=== PATIENT | male | born 1975 | race Caucasian/White ===

== ENCOUNTER 2018-05-03 12:57 | Inpatient (IN) | payer OTHER, SELFPAY ==
[2018-05-03] VITALS (8 sets, daily range): BP systolic 139–164; BP diastolic 90–99; PULSE 95–114; RESP 15–18; TEMP 37.2–38.3; O2SAT 92–97; BMI 27.5; BMI 28.0
--- NOTE | 2018-05-03 13:41 | ED_ITS ---
HPI - Abdominal Pain <Yelitza Colón PA-C - Last Filed: 05/03/18 22:05> General Chief Complaint: Abdominal Pain Stated Complaint: BLOATED, ABD PAIN Time Seen by Provider: 05/03/18 14:00 Source: patient Mode of arrival: ambulatory Limitations: no limitations History of Present Illness HPI narrative: This 43-year-old male is sent in by his PCP due to abdominal pain and possible fever, onset last night. He states that in the evening, he began having lower abdominal pain which he states is throughout both lower quadrants and can also feel up to the midline almost to the epigastrium. He states that this is worse when he moves around and seems more widespread. He vomited his dinner last night. He has had dry heaves today along with nausea but no vomiting. He has been able to keep down some water. He states that he has had chills and sweats at home, no temperature taken. He states that he had 2 or 3 episodes of loose stools without any blood in them yesterday. He denies any urinary symptoms or hematuria. He denies any chest pain or dyspnea. He feels somewhat shaky and weak all over but denies any extremity pain or body aches. He admits to 20+ lb weight loss without trying over the last 6 months and has not had any appetite. He denies night sweats or swollen glands. notes he has been trying interval THC to help his appetite. He does drink 1- 1.5 bottles of 1 most days, other days might have 2 drinks. He has been doing this for many years. He did drink wine last night. Related Data Home Medications Medication Instructions Recorded Confirmed albuterol sulfate [ProAir HFA] 2 puff INHALATION QID PRN 05/03/18 05/03/18 alprazolam [Xanax] 0.5 mg PO BID PRN 05/03/18 05/03/18 lisinopril 5 mg PO DAILY 05/03/18 05/03/18 Allergies Allergy/AdvReac Type Severity Reaction Status Date / Time No Known Drug Allergies Allergy Verified 05/03/18 13:24 Review of Systems <Yelitza Colón PA-C - Last Filed: 05/03/18 22:05> Review of Systems All systems reviewed & are unremarkable except as noted in HPI and below PFSH <ALBA Valladares Last Filed: 05/03/18 22:05> Comment: EtOH 4-6 glasses of wine daily most days. At double THC for appetite Exam <ALBA Valladares Last Filed: 05/03/18 22:05> Narrative Exam Narrative: GENERAL APPEARANCE: Patient lying supine, appears in NAD HEENT: PERRL, EOMI, no scleral icterus NECK: Supple LUNGS: Clear to auscultation bilaterally. HEART: Rate and rhythm regular, normal S1 and S2, no S3 or S4. ABDOMEN: Soft, generalized tenderness most pronounced over the lower quadrants and right upper quadrant. There is no guarding. There is rebound over the lower quadrants but this is not reproducible. Negative Funez sign. Positive obturator sign most on the left. EXTREMITIES: No edema, no cyanosis, no calf TTP DERMATOLOGIC: No jaundice or exanthem NEUROLOGIC: Alert and oriented with normal speech and coordination Initial Vital Signs Initial Vital Signs: Vital Signs Temperature 98.9 F 05/03/18 13:24 Pulse Rate 104 H 05/03/18 13:24 Respiratory Rate 18 05/03/18 13:24 Blood Pressure 164/99 H 05/03/18 13:24 Pulse Oximetry 97 05/03/18 13:24 <Colette Soto DO - Last Filed: 05/04/18 15:46> Initial Vital Signs Initial Vital Signs: Vital Signs Temperature 98.9 F 05/03/18 13:24 Pulse Rate 104 H 05/03/18 13:24 Respiratory Rate 18 05/03/18 13:24 Blood Pressure 164/99 H 05/03/18 13:24 Pulse Oximetry 97 05/03/18 13:24 Course <Yelitza Colón PA-C - Last Filed: 05/03/18 22:05> Decision to Admit Date: 05/03/18 Decision to Admit time: 16:10 Additional Information: spoke with radiologist re: Acute pancreatitis as well as concern for sigmoid thickening with diverticulitis versus carcinoma. Reviewed findings with patient. Dr. Perla, hospitalist stations superintendent is in the department and seen patient with plan for admission. Orders Ordered: ED Orders 05/05/18 05:00 Complete Blood Count AUTO DIFF Routine Comprehensive Metabolic Panel Routine 05/05/18 11:30 Lipase DAILY Acetaminophen (Tylenol) 650 mg PO Q4HR PRN PRN Reason: As Needed for Fever/Mild Pain Last Admin: 05/04/18 12:33 Dose: 650 mg Enoxaparin Sodium (Lovenox) 40 mg SUBCUT DAILY [facility] Last Admin: 05/04/18 07:47 Dose: 40 mg Hydromorphone HCl (Dilaudid) 1 mg IV Q4HRWA [facility] Last Admin: 05/04/18 13:59 Dose: Not Given Admin: 05/04/18 10:02 Dose: 1 mg Admin: 05/04/18 00:45 Dose: 1 mg Admin: 05/03/18 18:03 Dose: 1 mg Levofloxacin (Levaquin) 500 mg in 100 mls @ 100 mls/hr IV Q24H [facility] Last Infusion: 05/03/18 21:06 Dose: 0 mls/hr Admin: 05/03/18 19:19 Dose: 100 mls/hr Metronidazole (Flagyl) 500 mg in 100 mls @ 100 mls/hr IV Q8H [facility] Last Infusion: 05/04/18 09:59 Dose: 0 mls/hr Admin: 05/04/18 07:47 Dose: 100 mls/hr Infusion: 05/04/18 02:00 Dose: 100 mls/hr Admin: 05/04/18 00:43 Dose: 100 mls/hr Infusion: 05/03/18 19:19 Dose: 0 mls/hr Admin: 05/03/18 18:00 Dose: 100 mls/hr Dextrose/Sodium Chloride (Dextrose 5%-0.9% Ns) 1,000 mls @ 175 mls/hr IV CONT [facility] Last Admin: 05/04/18 10:03 Dose: 175 mls/hr Infusion: 05/03/18 23:43 Dose: 175 mls/hr Admin: 05/03/18 18:00 Dose: 175 mls/hr Lorazepam (Ativan) 2 mg IV Q4HR PRN PRN Reason: Alcohol Withdrawal Last Admin: 05/04/18 15:39 Dose: 2 mg Admin: 05/04/18 10:48 Dose: 2 mg Admin: 05/04/18 05:14 Dose: 2 mg Admin: 05/04/18 00:44 Dose: 2 mg Admin: 05/03/18 21:05 Dose: 2 mg Naloxone HCl (Narcan) 0.2 mg IV Q2MIN PRN PRN Reason: Opiate Reversal Ondansetron HCl (Zofran) 4 mg IV Q8HR PRN PRN Reason: Nausea And Vomiting Discontinued Medications Hydromorphone HCl (Dilaudid) 0.5 mg IV NOW ONE Stop: 05/03/18 15:17 Last Admin: 05/03/18 15:20 Dose: 0.5 mg Hydromorphone HCl (Dilaudid) 0.5 mg IV NOW ONE Stop: 05/03/18 16:00 Last Admin: 05/03/18 16:32 Dose: 0.5 mg Sodium Chloride (Normal Saline 0.9%) 1,000 mls @ 1,000 mls/hr IV BOLUS ONE Stop: 05/03/18 15:24 Last Infusion: 05/03/18 16:04 Dose: 0 mls/hr Admin: 05/03/18 14:39 Dose: 1,000 mls/hr Sodium Chloride (Normal Saline 0.9%) 1,000 mls @ 1,000 mls/hr IV BOLUS ONE Stop: 05/03/18 16:58 Last Infusion: 05/03/18 17:13 Dose: 1,000 mls/hr Admin: 05/03/18 16:32 Dose: 1,000 mls/hr Ketorolac Tromethamine (Toradol) 30 mg IV NOW ONE Stop: 05/03/18 14:26 Last Admin: 05/03/18 14:39 Dose: 30 mg Lorazepam (Ativan) 0.5 mg IV NOW ONE Stop: 05/03/18 14:26 Last Admin: 05/03/18 14:39 Dose: 0.5 mg Lorazepam (Ativan) 2 mg IV NOW ONE Stop: 05/03/18 16:23 Last Admin: 05/03/18 16:32 Dose: 2 mg Ondansetron HCl (Zofran) 4 mg IV NOW ONE Stop: 05/03/18 14:26 Last Admin: 05/03/18 14:39 Dose: 4 mg Vital Signs - 8 hr 05/04/18 07:57 05/04/18 10:20 05/04/18 12:33 Temperature 100.9 F H 100.5 F H Pulse Rate 111 H Respiratory Rate 20 Blood Pressure 145/91 H Pulse Oximetry 99 96 05/04/18 13:34 05/04/18 14:07 05/04/18 15:39 Temperature 100.6 F H 100.9 F H 101.3 F H Pulse Rate 106 H Respiratory Rate 20 Blood Pressure 143/84 H Pulse Oximetry 95 <Colette Soto, - Last Filed: 05/04/18 15:46> Orders Ordered: ED Orders 05/05/18 05:00 Complete Blood Count AUTO DIFF Routine Comprehensive Metabolic Panel Routine 05/05/18 11:30 Lipase DAILY Acetaminophen (Tylenol) 650 mg PO Q4HR PRN PRN Reason: As Needed for Fever/Mild Pain Last Admin: 05/04/18 12:33 Dose: 650 mg Enoxaparin Sodium (Lovenox) 40 mg SUBCUT DAILY [facility] Last Admin: 05/04/18 07:47 Dose: 40 mg Hydromorphone HCl (Dilaudid) 1 mg IV Q4HRWA [facility] Last Admin: 05/04/18 13:59 Dose: Not Given Admin: 05/04/18 10:02 Dose: 1 mg Admin: 05/04/18 00:45 Dose: 1 mg Admin: 05/03/18 18:03 Dose: 1 mg Levofloxacin (Levaquin) 500 mg in 100 mls @ 100 mls/hr IV Q24H [facility] Last Infusion: 05/03/18 21:06 Dose: 0 mls/hr Admin: 05/03/18 19:19 Dose: 100 mls/hr Metronidazole (Flagyl) 500 mg in 100 mls @ 100 mls/hr IV Q8H [facility] Last Infusion: 05/04/18 09:59 Dose: 0 mls/hr Admin: 05/04/18 07:47 Dose: 100 mls/hr Infusion: 05/04/18 02:00 Dose: 100 mls/hr Admin: 05/04/18 00:43 Dose: 100 mls/hr Infusion: 05/03/18 19:19 Dose: 0 mls/hr Admin: 05/03/18 18:00 Dose: 100 mls/hr Dextrose/Sodium Chloride (Dextrose 5%-0.9% Ns) 1,000 mls @ 175 mls/hr IV CONT [facility] Last Admin: 05/04/18 10:03 Dose: 175 mls/hr Infusion: 05/03/18 23:43 Dose: 175 mls/hr Admin: 05/03/18 18:00 Dose: 175 mls/hr Lorazepam (Ativan) 2 mg IV Q4HR PRN PRN Reason: Alcohol Withdrawal Last Admin: 05/04/18 15:39 Dose: 2 mg Admin: 05/04/18 10:48 Dose: 2 mg Admin: 05/04/18 05:14 Dose: 2 mg Admin: 05/04/18 00:44 Dose: 2 mg Admin: 05/03/18 21:05 Dose: 2 mg Naloxone HCl (Narcan) 0.2 mg IV Q2MIN PRN PRN Reason: Opiate Reversal Ondansetron HCl (Zofran) 4 mg IV Q8HR PRN PRN Reason: Nausea And Vomiting Discontinued Medications Hydromorphone HCl (Dilaudid) 0.5 mg IV NOW ONE Stop: 05/03/18 15:17 Last Admin: 05/03/18 15:20 Dose: 0.5 mg Hydromorphone HCl (Dilaudid) 0.5 mg IV NOW ONE Stop: 05/03/18 16:00 Last Admin: 05/03/18 16:32 Dose: 0.5 mg Sodium Chloride (Normal Saline 0.9%) 1,000 mls @ 1,000 mls/hr IV BOLUS ONE Stop: 05/03/18 15:24 Last Infusion: 05/03/18 16:04 Dose: 0 mls/hr Admin: 05/03/18 14:39 Dose: 1,000 mls/hr Sodium Chloride (Normal Saline 0.9%) 1,000 mls @ 1,000 mls/hr IV BOLUS ONE Stop: 05/03/18 16:58 Last Infusion: 05/03/18 17:13 Dose: 1,000 mls/hr Admin: 05/03/18 16:32 Dose: 1,000 mls/hr Ketorolac Tromethamine (Toradol) 30 mg IV NOW ONE Stop: 05/03/18 14:26 Last Admin: 05/03/18 14:39 Dose: 30 mg Lorazepam (Ativan) 0.5 mg IV NOW ONE Stop: 05/03/18 14:26 Last Admin: 05/03/18 14:39 Dose: 0.5 mg Lorazepam (Ativan) 2 mg IV NOW ONE Stop: 05/03/18 16:23 Last Admin: 05/03/18 16:32 Dose: 2 mg Ondansetron HCl (Zofran) 4 mg IV NOW ONE Stop: 05/03/18 14:26 Last Admin: 05/03/18 14:39 Dose: 4 mg Vital Signs - 8 hr 05/04/18 07:57 05/04/18 10:20 05/04/18 12:33 Temperature 100.9 F H 100.5 F H Pulse Rate 111 H Respiratory Rate 20 Blood Pressure 145/91 H Pulse Oximetry 99 96 05/04/18 13:34 05/04/18 14:07 05/04/18 15:39 Temperature 100.6 F H 100.9 F H 101.3 F H Pulse Rate 106 H Respiratory Rate 20 Blood Pressure 143/84 H Pulse Oximetry 95 MDM - Abdominal Pain <Yelitza Colón PA-C - Last Filed: 05/03/18 22:05> Lab Data Result diagrams: 05/03/18 21:13 05/03/18 21:13 Lab Results 05/03/18 05/03/18 05/03/18 Range/Units 13:55 13:55 13:55 WBC 12.3 H (4.5-11.0) X10^3/uL RBC 4.35 L (4.5-5.9) X10^6/uL Hgb 15.8 (13.5-17.5) g/dL Hct 43.8 (41-53) % MCV 100.7 H (80-100) fL MCH 36.4 H (26-34) PG MCHC 36.1 H (30-36) % RDW 13.4 (11.6-14.8) % Plt Count 93 L (150-400) X10^3/uL Neut % (Auto) 81.7 H (50-75) % Lymph % (Auto) 5.9 L (25-40) % [place] % (Auto) 11.8 (3-14) % Eos % (Auto) 0.0 L (2-4) % Baso % (Auto) 0.6 (0-2) % Neut # (Auto) 56160 H (9429-6808) /uL Total Counted Seg Neutrophils % (38-70) % Band Neutrophils % (3-7) % Lymphocytes % (Manual) (25-45) % Atypical Lymphs % ( - 0) % Monocytes % (Manual) (2-11) % Neutrophils # (Manual) (8268-4412) /uL RBC Morphology PT 12.5 (10.1-12.7) SECONDS INR 1.2 (0.9-1.3) APTT 31 (26.4-36.2) SECONDS Sodium 135 L (137-145) mmol/L Potassium 3.8 (3.4-5.1) mmol/L Chloride 98 (98-107) mmol/L Carbon Dioxide 23 (22-32) mmol/L BUN 7 L (9-20) mg/dL Creatinine 0.70 (0.66-1.25) mg/dL Estimated GFR > 60.0 (>60) mL/min BUN/Creatinine Ratio 10.0 (6-22) Glucose 110 H (70-100) mg/dL Calcium 9.0 (8.4-10.2) mg/dL Total Bilirubin 2.2 H (0.2-1.3) mg/dL AST 139 H (17-59) IU/L ALT 80 H (21-72) IU/L Alkaline Phosphatase 78 (38-126) U/L Total Protein 7.8 (6.3-8.2) g/dL Albumin 4.4 (3.5-5.0) g/dL Globulin 3.4 (1.7-4.1) g/dL Albumin/Globulin Ratio 1.3 (1.0-2.8) Triglycerides (35-150) mg/dL Cholesterol (140-199) mg/dL LDL Cholesterol, Calc HDL Cholesterol (40-60) mg/dL Lipase 1032 H (23-300) U/L Urine Color Urine Appearance Urine pH (4.5-8.0) Ur Specific [place] (1.000-1.035) Urine Protein (Negative) Urine Glucose (UA) (Normal) g/dL Urine Ketones (NEGATIVE) Urine Occult Blood (Negative) Urine Nitrate (Negative) Urine Bilirubin (NEGATIVE) Urine Urobilinogen (0.2) E.U./dL Ur Leukocyte Esterase (NEGATIVE) Urine RBC (0-5/HPF) Urine WBC (0-5/HPF) Urine Bacteria (None) Ur Culture Indicated? Micro UA Comment 05/03/18 05/03/18 05/03/18 Range/Units 16:05 21:13 21:13 WBC 9.8 (4.5-11.0) X10^3/uL RBC 3.92 L (4.5-5.9) X10^6/uL Hgb 14.2 (13.5-17.5) g/dL Hct 40.1 L (41-53) % MCV 102.2 H (80-100) fL MCH 36.1 H (26-34) PG MCHC 35.3 (30-36) % RDW 13.3 (11.6-14.8) % Plt Count 64 L (150-400) X10^3/uL Neut % (Auto) (50-75) % Lymph % (Auto) (25-40) % [place] % (Auto) (3-14) % Eos % (Auto) (2-4) % Baso % (Auto) (0-2) % Neut # (Auto) (2045-6141) /uL Total Counted 100 Seg Neutrophils % 81.0 H (38-70) % Band Neutrophils % 1.0 L (3-7) % Lymphocytes % (Manual) 6.0 L (25-45) % Atypical Lymphs % 3.0 H ( - 0) % Monocytes % (Manual) 9.0 (2-11) % Neutrophils # (Manual) 8036 H (6689-3101) /uL RBC Morphology Normal morphology PT (10.1-12.7) SECONDS INR (0.9-1.3) APTT (26.4-36.2) SECONDS Sodium 134 L (137-145) mmol/L Potassium 3.5 (3.4-5.1) mmol/L Chloride 102 (98-107) mmol/L Carbon Dioxide 22 (22-32) mmol/L BUN 8 L (9-20) mg/dL Creatinine 0.70 (0.66-1.25) mg/dL Estimated GFR > 60.0 (>60) mL/min BUN/Creatinine Ratio 11.4 (6-22) Glucose 118 H (70-100) mg/dL Calcium 7.9 L (8.4-10.2) mg/dL Total Bilirubin 1.5 H (0.2-1.3) mg/dL AST 116 H (17-59) IU/L ALT 71 (21-72) IU/L Alkaline Phosphatase 59 (38-126) U/L Total Protein 6.7 (6.3-8.2) g/dL Albumin 3.6 (3.5-5.0) g/dL Globulin 3.1 (1.7-4.1) g/dL Albumin/Globulin Ratio 1.2 (1.0-2.8) Triglycerides 1865 H (35-150) mg/dL Cholesterol 293 H (140-199) mg/dL LDL Cholesterol, Calc TNP HDL Cholesterol 29 L (40-60) mg/dL Lipase 530 H (23-300) U/L Urine Color Yellow Urine Appearance Clear Urine pH 6.5 (4.5-8.0) Ur Specific [place] <=1.005 (1.000-1.035) Urine Protein Negative (Negative) Urine Glucose (UA) Negative (Normal) g/dL Urine Ketones Negative (NEGATIVE) Urine Occult Blood Negative (Negative) Urine Nitrate Negative (Negative) Urine Bilirubin Negative (NEGATIVE) Urine Urobilinogen 0.2 (0.2) E.U./dL Ur Leukocyte Esterase Negative (NEGATIVE) Urine RBC None seen (0-5/HPF) Urine WBC 0-1/hpf (0-5/HPF) Urine Bacteria None seen (None) Ur Culture Indicated? Cult not indicated Micro UA Comment Not Reportable Imaging Data CT scan - abdomen: Radiologist's impression: [place] [address] CT Scan Report Signed Patient: Steven Heredia MR#: [id number] : 1975 Acct:[id number] Age/Sex: 42 / M Date of Service: 05/03/18 Loc: ED Accession Number: [id number] Procedure: CT abdomen pelvis w con Ordering Provider: Yelitza Colón P.A-C PROCEDURE: CT ABDOMEN PELVIS W CON INDICATIONS: lower quadrant pain, vomiting, unintentional wt loss TECHNIQUE: After the administration of oral and intravenous contrast, 5 mm thick sections acquired from the diaphragms to the symphysis. 5 mm thick coronal and sagittal reformats were performed. For radiation dose reduction, the following was used: automated exposure control, adjustment of mA and/or kV according to patient size. COMPARISON: None. FINDINGS: Image quality: Excellent. ABDOMEN: Lung bases: Lung bases are clear. Heart size is normal. Solid organs: Liver is normal in size and enhancement. Diffuse fatty infiltration of the liver. Gallbladder is within normal limits. Biliary system is non-dilated. Pancreas enhances normally. Mild inflammatory changes and free fluid noted adjacent to the distal body and tail of the pancreas. Mild inflammatory changes noted adjacent to the uncinate process of the pancreas. Spleen is normal in size and enhancement. No adrenal nodules. Kidneys are normal in size and enhancement, without hydronephrosis. Peritoneum and bowel: A scattered diverticuli noted in the sigmoid colon. Moderate circumferential wall thickening noted in the mid sigmoid colon. Stomach and small bowel are normal in caliber and wall thickness. No free air. The appendix is normal. Nodes and vessels: No mesenteric adenopathy. Mildly enlarged peripancreatic and periportal lymph nodes are noted. Largest periportal lymph node measures 1.4 cm. Largest perihepatic pancreatic node measures 1 cm. Aorta and inferior vena cava are normal in caliber. Miscellaneous: No ventral hernias. PELVIS: Genitourinary: Bladder wall thickness is normal. Miscellaneous: No inguinal hernias or adenopathy. Bones: No suspicious bony lesions. Chronic posterior lateral left 10th and 11th rib fractures. No vertebral body compression fractures. IMPRESSION: 1. Mild inflammatory changes and free fluid noted adjacent to the uncinate process, distal body and tail of pancreas compatible with pancreatitis. 2. Circumferential wall thickening noted in the mid sigmoid colon region of several diverticula which may represent chronic diverticulitis versus colon carcinoma. Recommend colonoscopy for definitive characterization. 3. Mildly enlarged peripancreatic and periportal lymph nodes are noted which could be reactive or neoplastic. 4. The appendix is normal. 5. Hepatic steatosis. 6. Findings telephoned to MARIAM Valladares on 05/03/2018 at 1559 hrs. Dictated by: Jaimee Cabral MD, PhD on 05/03/2018 at 15:49 Approved by: Jaimee Cabral MD, PhD on 05/03/2018 at 16:00 ECG Data Attestation: I personally reviewed and interpreted this ECG as follows: (Normal sinus rhythm with rate 96, normal axis) <Colette Soto, - Last Filed: 05/04/18 15:46> Lab Data Lab Results 05/03/18 05/03/18 05/03/18 Range/Units 13:55 13:55 13:55 WBC 12.3 H (4.5-11.0) X10^3/uL RBC 4.35 L (4.5-5.9) X10^6/uL Hgb 15.8 (13.5-17.5) g/dL Hct 43.8 (41-53) % MCV 100.7 H (80-100) fL MCH 36.4 H (26-34) PG MCHC 36.1 H (30-36) % RDW 13.4 (11.6-14.8) % Plt Count 93 L (150-400) X10^3/uL Neut % (Auto) 81.7 H (50-75) % Lymph % (Auto) 5.9 L (25-40) % [place] % (Auto) 11.8 (3-14) % Eos % (Auto) 0.0 L (2-4) % Baso % (Auto) 0.6 (0-2) % Neut # (Auto) 72146 H (5104-2866) /uL Total Counted Seg Neutrophils % (38-70) % Band Neutrophils % (3-7) % Lymphocytes % (Manual) (25-45) % Atypical Lymphs % ( - 0) % Monocytes % (Manual) (2-11) % Neutrophils # (Manual) (3189-6490) /uL RBC Morphology PT 12.5 (10.1-12.7) SECONDS INR 1.2 (0.9-1.3) APTT 31 (26.4-36.2) SECONDS Sodium 135 L (137-145) mmol/L Potassium 3.8 (3.4-5.1) mmol/L Chloride 98 (98-107) mmol/L Carbon Dioxide 23 (22-32) mmol/L BUN 7 L (9-20) mg/dL Creatinine 0.70 (0.66-1.25) mg/dL Estimated GFR > 60.0 (>60) mL/min BUN/Creatinine Ratio 10.0 (6-22) Glucose 110 H (70-100) mg/dL Calcium 9.0 (8.4-10.2) mg/dL Total Bilirubin 2.2 H (0.2-1.3) mg/dL AST 139 H (17-59) IU/L ALT 80 H (21-72) IU/L Alkaline Phosphatase 78 (38-126) U/L Total Protein 7.8 (6.3-8.2) g/dL Albumin 4.4 (3.5-5.0) g/dL Globulin 3.4 (1.7-4.1) g/dL Albumin/Globulin Ratio 1.3 (1.0-2.8) Triglycerides (35-150) mg/dL Cholesterol (140-199) mg/dL LDL Cholesterol, Calc HDL Cholesterol (40-60) mg/dL Lipase 1032 H (23-300) U/L Urine Color Urine Appearance Urine pH (4.5-8.0) Ur Specific [place] (1.000-1.035) Urine Protein (Negative) Urine Glucose (UA) (Normal) g/dL Urine Ketones (NEGATIVE) Urine Occult Blood (Negative) Urine Nitrate (Negative) Urine Bilirubin (NEGATIVE) Urine Urobilinogen (0.2) E.U./dL Ur Leukocyte Esterase (NEGATIVE) Urine RBC (0-5/HPF) Urine WBC (0-5/HPF) Urine Bacteria (None) Ur Culture Indicated? Micro UA Comment 05/03/18 05/03/18 05/03/18 Range/Units 16:05 21:13 21:13 WBC 9.8 (4.5-11.0) X10^3/uL RBC 3.92 L (4.5-5.9) X10^6/uL Hgb 14.2 (13.5-17.5) g/dL Hct 40.1 L (41-53) % MCV 102.2 H (80-100) fL MCH 36.1 H (26-34) PG MCHC 35.3 (30-36) % RDW 13.3 (11.6-14.8) % Plt Count 64 L (150-400) X10^3/uL Neut % (Auto) (50-75) % Lymph % (Auto) (25-40) % [place] % (Auto) (3-14) % Eos % (Auto) (2-4) % Baso % (Auto) (0-2) % Neut # (Auto) (4780-3087) /uL Total Counted 100 Seg Neutrophils % 81.0 H (38-70) % Band Neutrophils % 1.0 L (3-7) % Lymphocytes % (Manual) 6.0 L (25-45) % Atypical Lymphs % 3.0 H ( - 0) % Monocytes % (Manual) 9.0 (2-11) % Neutrophils # (Manual) 8036 H (6956-3475) /uL RBC Morphology Normal morphology PT (10.1-12.7) SECONDS INR (0.9-1.3) APTT (26.4-36.2) SECONDS Sodium 134 L (137-145) mmol/L Potassium 3.5 (3.4-5.1) mmol/L Chloride 102 (98-107) mmol/L Carbon Dioxide 22 (22-32) mmol/L BUN 8 L (9-20) mg/dL Creatinine 0.70 (0.66-1.25) mg/dL Estimated GFR > 60.0 (>60) mL/min BUN/Creatinine Ratio 11.4 (6-22) Glucose 118 H (70-100) mg/dL Calcium 7.9 L (8.4-10.2) mg/dL Total Bilirubin 1.5 H (0.2-1.3) mg/dL AST 116 H (17-59) IU/L ALT 71 (21-72) IU/L Alkaline Phosphatase 59 (38-126) U/L Total Protein 6.7 (6.3-8.2) g/dL Albumin 3.6 (3.5-5.0) g/dL Globulin 3.1 (1.7-4.1) g/dL Albumin/Globulin Ratio 1.2 (1.0-2.8) Triglycerides 1865 H (35-150) mg/dL Cholesterol 293 H (140-199) mg/dL LDL Cholesterol, Calc TNP HDL Cholesterol 29 L (40-60) mg/dL Lipase 530 H (23-300) U/L Urine Color Yellow Urine Appearance Clear Urine pH 6.5 (4.5-8.0) Ur Specific [place] <=1.005 (1.000-1.035) Urine Protein Negative (Negative) Urine Glucose (UA) Negative (Normal) g/dL Urine Ketones Negative (NEGATIVE) Urine Occult Blood Negative (Negative) Urine Nitrate Negative (Negative) Urine Bilirubin Negative (NEGATIVE) Urine Urobilinogen 0.2 (0.2) E.U./dL Ur Leukocyte Esterase Negative (NEGATIVE) Urine RBC None seen (0-5/HPF) Urine WBC 0-1/hpf (0-5/HPF) Urine Bacteria None seen (None) Ur Culture Indicated? Cult not indicated Micro UA Comment Not Reportable Discharge Plan Departure Patient Disposition: Admitted As Inpatient Clinical Impression: Acute pancreatitis, Sigmoid thickening, Unintentional weight loss Discharge Date/Time: 05/03/18 17:14 Interventions: ED Discharge Assessment Last Done: 05/03/18 17:14 Admit Date/Time: 05/03/18 17:13 Admit Provider: Laine Perla <Colette Soto DO - Last Filed: 05/04/18 15:46> Cosign ED Attending Emeryature Attestation: I was immediately available in the department for consultation. Documentation has been reviewed. I agree with assessment and plan.
[2018-05-03 14:07] LABS: Add Manual Diff / Slide Review NO; Basophils Percent Auto 0.6 % (0-2); Hematocrit 43.8 % (41-53); Hemoglobin 15.8 g/dL (13.5-17.5); Lymphocytes Percent Auto 5.9 % (25-40); Mean Corpuscular HGB Conc 36.1 % (30-36); Mean Corpuscular Hemoglobin 36.4 PG (26-34); Mean Corpuscular Volume 100.7 fL (80-100); Monocytes Percent Auto 11.8 % (3-14); Neutrophils Absolute Auto 10000 /uL (3000-5900); Neutrophils Percent Auto 81.7 % (50-75); Platelet Count 93 X10^3/uL (150-400); Red Blood Cell Count 4.35 X10^6/uL (4.5-5.9); Red Cell Distribution Width 13.4 % (11.6-14.8); White Blood Cell Count 12.3 X10^3/uL (4.5-11.0)
[2018-05-03 14:09] LABS: INR 1.2 (0.9-1.3); Prothrombin Time 12.5 SECONDS (10.1-12.7)
[2018-05-03 14:12] LABS: PTT Partial Thromboplastin Tim 31 SECONDS (26.4-36.2)
[2018-05-03 14:14] LABS: Alanine Aminotransferase 80 IU/L (21-72); Albumin 4.4 g/dL (3.5-5.0); Albumin Globulin Ratio 1.3 (1.0-2.8); Alkaline Phosphatase 78 U/L (38-126); Aspartate Aminotransferase 139 IU/L (17-59); Bilirubin Total 2.2 mg/dL (0.2-1.3); Blood Urea Nitrogen 7 mg/dL (9-20); Carbon Dioxide 23 mmol/L (22-32); Chloride 98 mmol/L (98-107); Estimated Glomerular Filt Rate > 60.0 mL/min (>60); Globulin 3.4 g/dL (1.7-4.1); Glucose 110 mg/dL (70-100); Lipase 1032 U/L (23-300); Sodium 135 mmol/L (137-145); Total Protein 7.8 g/dL (6.3-8.2)
--- NOTE | 2018-05-03 14:26 | DI.CT.S_ITS ---
PROCEDURE: CT ABDOMEN PELVIS W CON INDICATIONS: lower quadrant pain, vomiting, unintentional wt loss TECHNIQUE: After the administration of oral and intravenous contrast, 5 mm thick sections acquired from the diaphragms to the symphysis. 5 mm thick coronal and sagittal reformats were performed. For radiation dose reduction, the following was used: automated exposure control, adjustment of mA and/or kV according to patient size. COMPARISON: None. FINDINGS: Image quality: Excellent. ABDOMEN: Lung bases: Lung bases are clear. Heart size is normal. Solid organs: Liver is normal in size and enhancement. Diffuse fatty infiltration of the liver. Gallbladder is within normal limits. Biliary system is non-dilated. Pancreas enhances normally. Mild inflammatory changes and free fluid noted adjacent to the distal body and tail of the pancreas. Mild inflammatory changes noted adjacent to the uncinate process of the pancreas. Spleen is normal in size and enhancement. No adrenal nodules. Kidneys are normal in size and enhancement, without hydronephrosis. Peritoneum and bowel: A scattered diverticuli noted in the sigmoid colon. Moderate circumferential wall thickening noted in the mid sigmoid colon. Stomach and small bowel are normal in caliber and wall thickness. No free air. The appendix is normal. Nodes and vessels: No mesenteric adenopathy. Mildly enlarged peripancreatic and periportal lymph nodes are noted. Largest periportal lymph node measures 1.4 cm. Largest perihepatic pancreatic node measures 1 cm. Aorta and inferior vena cava are normal in caliber. Miscellaneous: No ventral hernias. PELVIS: Genitourinary: Bladder wall thickness is normal. Miscellaneous: No inguinal hernias or adenopathy. Bones: No suspicious bony lesions. Chronic posterior lateral left 10th and 11th rib fractures. No vertebral body compression fractures. IMPRESSION: 1. Mild inflammatory changes and free fluid noted adjacent to the uncinate process, distal body and tail of pancreas compatible with pancreatitis. 2. Circumferential wall thickening noted in the mid sigmoid colon region of several diverticula which may represent chronic diverticulitis versus colon carcinoma. Recommend colonoscopy for definitive characterization. 3. Mildly enlarged peripancreatic and periportal lymph nodes are noted which could be reactive or neoplastic. 4. The appendix is normal. 5. Hepatic steatosis. 6. Findings telephoned to MARIAM Valladares on 05/03/2018 at 1559 hrs. Dictated by: Jaimee Cabral MD, PhD on 05/03/2018 at 15:49 Approved by: Jaimee Cabral MD, PhD on 05/03/2018 at 16:00
[2018-05-03 14:28] LABS: HEMOLYSIS 84 (0-50)
[2018-05-03 14:29] LABS: Potassium 3.8 mmol/L (3.4-5.1)
[2018-05-03] MEDS: ONDANSETRON 4 MG/2 ML INJ IV (14:39)
[2018-05-03] MEDS: SODIUM CHLORIDE 0.9% 1,000 ML 1000 ML IV ×2 (14:39→16:32)
[2018-05-03] MEDS: LORazepam 2 MG/ML SYRINGE 0.5 MG IV (14:39)
[2018-05-03] MEDS: KETOROLAC 60 MG/2 ML VIAL 30 MG IV (14:39)
[2018-05-03] MEDS: HYDROMORPHONE 1 MG INJ 0.5 MG IV ×2 (15:20→16:32)
[2018-05-03] MEDS: LORazepam 2 MG/ML SYRINGE IV ×2 (16:32→21:05)
--- NOTE | 2018-05-03 17:00 | PM.HP.1 ---
History of Present Illness Chief complaint: BLOATED, ABD PAIN Patient History Medical History HTN (hypertension) (Chronic) Surgical History History of tonsillectomy (Resolved) Family & Social History Tobacco & Substance use: Smoking Status Never smoker alcohol intake current alcohol intake frequency 3 or more drinks per day Substance Use Type marijuana Meds Allergies Allergy/AdvReac Type Severity Reaction Status Date / Time No Known Drug Allergies Allergy Verified 05/03/18 13:24 Review of Systems Review of Systems All systems reviewed & are unremarkable except as noted in HPI and below Exam Vital Signs (past 8 hours): - 05/03/18 13:24 05/03/18 14:30 05/03/18 15:20 Temperature 98.9 F 100.9 F H 100.6 F H Pulse Rate 104 H 97 H Respiratory Rate 18 15 Blood Pressure 164/99 H Blood Pressure [Right Arm] 159/90 H Pulse Oximetry 97 96 05/03/18 16:48 Temperature 99.8 F H Pulse Rate 95 H Respiratory Rate 16 Blood Pressure Blood Pressure [Right Arm] 144/92 H Pulse Oximetry 95 Oxygen Delivery Method Room Air Narrative Exam Narrative: HEENT: Face is flushed, EOMI, ORopharyx clear Neck is supple without adenopathy Lungs: Clear to auscultation CV: Tachy RRR nl Sl S2 Abd: Soft, diffusely tender, no rebound tenderness, no boardlike rigidity, no palplable masses Ext: no edema Neuro: + tremor, Awake, alert , and appropriate Cranial nerves intact Strength symmetric and equal sensation in tact Objective Labs Result Diagrams: 05/03/18 13:55 05/03/18 13:55 Labs: Laboratory Results - last 24 hr 05/03/18 05/03/18 05/03/18 13:55 13:55 13:55 WBC 12.3 H RBC 4.35 L Hgb 15.8 Hct 43.8 MCV 100.7 H MCH 36.4 H MCHC 36.1 H RDW 13.4 Plt Count 93 L Neut % (Auto) 81.7 H Lymph % (Auto) 5.9 L [place] % (Auto) 11.8 Eos % (Auto) 0.0 L Baso % (Auto) 0.6 Neut # (Auto) 37276 H PT 12.5 INR 1.2 APTT 31 Sodium 135 L Potassium 3.8 Chloride 98 Carbon Dioxide 23 BUN 7 L Creatinine 0.70 Estimated GFR > 60.0 BUN/Creatinine Ratio 10.0 Glucose 110 H Calcium 9.0 Total Bilirubin 2.2 H AST 139 H ALT 80 H Alkaline Phosphatase 78 Total Protein 7.8 Albumin 4.4 Globulin 3.4 Albumin/Globulin Ratio 1.3 Lipase 1032 H Assessment & Plan (1) Acute pancreatitis: Problem details: NPO, IV hydration, pain medications and antinausea medications Will check lipids as well Qualifiers: Acute pancreatitis complication: unspecified Pancreatitis type: unspecified pancreatitis type Qualified Code(s): K85.90 - Acute pancreatitis without necrosis or infection, unspecified Current visit: Yes Status: Acute (2) Sigmoid thickening: Problem details: Start Levofloxacin and Flagyl Surgery consult before discharge to plan for colonoscopay Current visit: Yes Status: Acute (3) Unintentional weight loss: Problem details: colonoscopy as above Current visit: Yes Status: Acute (4) Alcohol withdrawal: Problem details: [facility] protocol [facility] Current visit: Yes Status: Acute Plan: Assessment/Plan Narrative: As above
[2018-05-03 17:02] LABS: Bacteria Urine None Seen; RBC Urine None Seen (0-5/HPF)
[2018-05-03 17:07] LABS: Appearance Urine UA CLEAR; Bilirubin Urine UA NEGATIVE (NEGATIVE); Color Urine UA YELLOW; Glucose Urine UA NEGATIVE (Normal); Ketones Urine UA NEGATIVE (NEGATIVE); Leukocyte Esterase Urine UA NEGATIVE (NEGATIVE); Nitrite Urine UA Negative (Negative); Occult Blood Urine UA NEGATIVE (Negative); Protein Urine UA NEGATIVE (Negative); Specific Gravity Urine UA <=1.005 (1.000-1.035); Urobilinogen Urine UA 0.2 E.U./dL (0.2); pH Urine UA 6.5 (4.5-8.0)
[2018-05-03 17:15] LABS: Culture Indicated Urine Cult Not Indicated; WBC Urine 0-1/HPF (0-5/HPF)
--- NOTE | 2018-05-03 17:22 | P.HP_ITS ---
History of Present Illness Chief complaint: BLOATED, ABD PAIN Patient History Medical History HTN (hypertension) (Chronic) Surgical History History of tonsillectomy (Resolved) Family & Social History Tobacco & Substance use: Smoking Status Never smoker alcohol intake current alcohol intake frequency 3 or more drinks per day Substance Use Type marijuana Meds Allergies Allergy/AdvReac Type Severity Reaction Status Date / Time No Known Drug Allergies Allergy Verified 05/03/18 13:24 Review of Systems Review of Systems All systems reviewed & are unremarkable except as noted in HPI and below Exam Vital Signs (past 8 hours): - 05/03/18 13:24 05/03/18 14:30 05/03/18 15:20 Temperature 98.9 F 100.9 F H 100.6 F H Pulse Rate 104 H 97 H Respiratory Rate 18 15 Blood Pressure 164/99 H Blood Pressure [Right Arm] 159/90 H Pulse Oximetry 97 96 05/03/18 16:48 Temperature 99.8 F H Pulse Rate 95 H Respiratory Rate 16 Blood Pressure Blood Pressure [Right Arm] 144/92 H Pulse Oximetry 95 Oxygen Delivery Method Room Air Narrative Exam Narrative: HEENT: Face is flushed, EOMI, ORopharyx clear Neck is supple without adenopathy Lungs: Clear to auscultation CV: Tachy RRR nl Sl S2 Abd: Soft, diffusely tender, no rebound tenderness, no boardlike rigidity, no palplable masses Ext: no edema Neuro: + tremor, Awake, alert , and appropriate Cranial nerves intact Strength symmetric and equal sensation in tact Objective Labs Result Diagrams: 05/03/18 13:55 05/03/18 13:55 Labs: Laboratory Results - last 24 hr 05/03/18 05/03/18 05/03/18 13:55 13:55 13:55 WBC 12.3 H RBC 4.35 L Hgb 15.8 Hct 43.8 MCV 100.7 H MCH 36.4 H MCHC 36.1 H RDW 13.4 Plt Count 93 L Neut % (Auto) 81.7 H Lymph % (Auto) 5.9 L [place] % (Auto) 11.8 Eos % (Auto) 0.0 L Baso % (Auto) 0.6 Neut # (Auto) 54413 H PT 12.5 INR 1.2 APTT 31 Sodium 135 L Potassium 3.8 Chloride 98 Carbon Dioxide 23 BUN 7 L Creatinine 0.70 Estimated GFR > 60.0 BUN/Creatinine Ratio 10.0 Glucose 110 H Calcium 9.0 Total Bilirubin 2.2 H AST 139 H ALT 80 H Alkaline Phosphatase 78 Total Protein 7.8 Albumin 4.4 Globulin 3.4 Albumin/Globulin Ratio 1.3 Lipase 1032 H Assessment & Plan (1) Acute pancreatitis: Problem details: NPO, IV hydration, pain medications and antinausea medications Will check lipids as well Qualifiers: Acute pancreatitis complication: unspecified Pancreatitis type: unspecified pancreatitis type Qualified Code(s): K85.90 - Acute pancreatitis without necrosis or infection, unspecified Current visit: Yes Status: Acute (2) Sigmoid thickening: Problem details: Start Levofloxacin and Flagyl Surgery consult before discharge to plan for colonoscopay Current visit: Yes Status: Acute (3) Unintentional weight loss: Problem details: colonoscopy as above Current visit: Yes Status: Acute (4) Alcohol withdrawal: Problem details: [facility] Current visit: Yes Status: Acute Plan: Assessment/Plan Narrative: As above
[2018-05-03] MEDS: DEXTROSE 5%-0.9% NS 1,000 ML 175 ML IV (18:00)
[2018-05-03] MEDS: metroNIDAZOLE 500 MG/100 ML PIGGYBACK 100 MG IV (18:00)
[2018-05-03] MEDS: HYDROMORPHONE 1 MG INJ IV (18:03)
--- NOTE | 2018-05-03 18:49 | PC.ADMIT ---
[facility] Admission Note: The patient,Steven Heredia,42 y/o, was given written information regarding hospital policies, unit procedures and contact persons. Patient's smoking status: Never smoker. Vital Signs - 8 hr 05/03/18 13:24 05/03/18 14:30 05/03/18 15:20 Temperature 98.9 F 100.9 F H 100.6 F H Pulse Rate 104 H 97 H Respiratory Rate 18 15 Blood Pressure 164/99 H Blood Pressure [Right Arm] 159/90 H Pulse Oximetry 97 96 05/03/18 16:48 05/03/18 17:35 05/03/18 17:50 Temperature 99.8 F H 99.5 F Pulse Rate 95 H 98 H Respiratory Rate 16 18 Blood Pressure 148/91 H Blood Pressure [Right Arm] 144/92 H Pulse Oximetry 95 95 96 pt arrived to via stretcher. pt was able to get off of the stretcher and ambulate to the bed. Pt A&O, calm and cooperative. Explained different symptoms with alcohol withdrawal and pt states he understands.
[2018-05-03] MEDS: levoFLOXacin 500 MG/100 ML PIGGYBACK 100 MG IV (19:19)
[2018-05-03 21:34] LABS: Hematocrit 40.1 % (41-53); Hemoglobin 14.2 g/dL (13.5-17.5); Mean Corpuscular HGB Conc 35.3 % (30-36); Mean Corpuscular Hemoglobin 36.1 PG (26-34); Mean Corpuscular Volume 102.2 fL (80-100); Platelet Count 64 X10^3/uL (150-400); Red Blood Cell Count 3.92 X10^6/uL (4.5-5.9); Red Cell Distribution Width 13.3 % (11.6-14.8); White Blood Cell Count 9.8 X10^3/uL (4.5-11.0)
[2018-05-03 21:56] LABS: Alanine Aminotransferase 71 IU/L (21-72); Albumin 3.6 g/dL (3.5-5.0); Albumin Globulin Ratio 1.2 (1.0-2.8); Alkaline Phosphatase 59 U/L (38-126); Aspartate Aminotransferase 116 IU/L (17-59); BUN Creatinine Ratio 11.4 (6-22); Bilirubin Total 1.5 mg/dL (0.2-1.3); Blood Urea Nitrogen 8 mg/dL (9-20); Calcium 7.9 mg/dL (8.4-10.2); Carbon Dioxide 22 mmol/L (22-32); Chloride 102 mmol/L (98-107); Estimated Glomerular Filt Rate > 60.0 mL/min (>60); Globulin 3.1 g/dL (1.7-4.1); Glucose 118 mg/dL (70-100); HEMOLYSIS 27 (0-50); Lipase 530 U/L (23-300); Potassium 3.5 mmol/L (3.4-5.1); Sodium 134 mmol/L (137-145); Total Protein 6.7 g/dL (6.3-8.2)
--- NOTE | 2018-05-03 22:00 | PC.NURSE ---
ab pain better controlled, pt states at a tolerable level. increased tremors noted, ativan given. Seizure pads in place. Pt has had mild anxiety but A&O, cooperative.
[2018-05-03 22:07] LABS: Cholesterol 293 mg/dL (140-199); HDL Cholesterol 29 mg/dL (40-60)
[2018-05-03 22:51] LABS: Triglycerides 1865 mg/dL (35-150)
[2018-05-03 23:41] LABS: Neutrophils Absolute Manual 8036 /uL (3000-5900); Total Cells Counted 100
[2018-05-03 23:42] LABS: RBC Morphology Normal Morphology
[2018-05-04] VITALS (15 sets, daily range): BP systolic 130–148; BP diastolic 69–94; PULSE 102–129; RESP 16–20; TEMP 36.8–38.5; O2SAT 94–99
[2018-05-04] MEDS: metroNIDAZOLE 500 MG/100 ML PIGGYBACK 100 MG IV ×3 (00:43→17:10)
[2018-05-04] MEDS: LORazepam 2 MG/ML SYRINGE IV ×5 (00:44→21:04)
[2018-05-04] MEDS: HYDROMORPHONE 1 MG INJ IV ×4 (00:45→21:01)
--- NOTE | 2018-05-04 01:19 | PC.NURSE ---
shift mgr: Pt seems to have increased confusion since admission, notable tremors and anxiety, medicated with Ativan per [facility] protocol. Pt having difficulty with voiding at the bedside with urinal, assisted to to the bathroom with gait belt and 2PA, gait unsteady and pt needing a lot of queing with activity. Medicate with Dilaudid for ongoing abdominal pain.
[2018-05-04] MEDS: ENOXAPARIN 40 MG/0.4 ML SYRINGE SUBCUT (07:47)
--- NOTE | 2018-05-04 09:23 | CM.DANOTE ---
DCP: Case received, EMR reviewed and met with patient. Introduced self and role. DCP template completed with information currently available. Patient is a 42 year old male who admitted yesterday afternoon to the care of the hospitalist team. PCP: Dr. Morena Guerra. Payer: confirmed: [facility]. Patient carries diagnosis of Acute Pancreatitis. Came in to hospital with symptoms of feeling bloated with abdominal pain. Is independent at home, lives with his in [facility]. P: DCP to continue to assess. Plan is for patient to return home when stable. Ashely Gresham RN/Application Helper
[2018-05-04] MEDS: DEXTROSE 5%-0.9% NS 1,000 ML 175 ML IV (10:03)
--- NOTE | 2018-05-04 11:18 | PM.PN.1 ---
Subjective Date Patient Seen: 05/04/18 Time Patient Seen: 11:19 Interval history: Patient reports he feels much better today. He is thirsty and hungry. Still with some abdominal pain but overall improved He continues to have a tremor but no hallucinations or seizures. Exam Vital Signs (past 8 hours): - 05/04/18 04:00 05/04/18 07:30 05/04/18 07:45 Temperature 99.5 F 101.3 F H 101.3 F H Pulse Rate 112 H 120 H 129 H Respiratory Rate 18 20 20 Blood Pressure 143/94 H 148/91 H 144/69 H Pulse Oximetry 95 99 99 05/04/18 07:57 05/04/18 10:20 Temperature 100.9 F H Pulse Rate Respiratory Rate Blood Pressure Pulse Oximetry 99 Oxygen Delivery Method Room Air Oxygen Flow Rate 0 Narrative Exam Narrative: Face: Flushed Lungs: clear to ausculatation CV: RRR nl Sl S2 Abd: mildly distended, soft, diffusely tender, no rebound no rigidity, no palpable masses Ext: no edema Neuro: awake, alert, and appropirate Objective Labs Result Diagrams: 05/03/18 21:13 05/03/18 21:13 Labs: Laboratory Results - last 24 hr 05/03/18 05/03/18 05/03/18 13:55 13:55 13:55 WBC 12.3 H RBC 4.35 L Hgb 15.8 Hct 43.8 MCV 100.7 H MCH 36.4 H MCHC 36.1 H RDW 13.4 Plt Count 93 L Neut % (Auto) 81.7 H Lymph % (Auto) 5.9 L [place] % (Auto) 11.8 Eos % (Auto) 0.0 L Baso % (Auto) 0.6 Neut # (Auto) 04637 H Total Counted Seg Neutrophils % Band Neutrophils % Lymphocytes % (Manual) Atypical Lymphs % Monocytes % (Manual) Neutrophils # (Manual) RBC Morphology PT 12.5 INR 1.2 APTT 31 Sodium 135 L Potassium 3.8 Chloride 98 Carbon Dioxide 23 BUN 7 L Creatinine 0.70 Estimated GFR > 60.0 BUN/Creatinine Ratio 10.0 Glucose 110 H Calcium 9.0 Total Bilirubin 2.2 H AST 139 H ALT 80 H Alkaline Phosphatase 78 Total Protein 7.8 Albumin 4.4 Globulin 3.4 Albumin/Globulin Ratio 1.3 Triglycerides Cholesterol LDL Cholesterol, Calc HDL Cholesterol Lipase 1032 H Urine Color Urine Appearance Urine pH Ur Specific [place] Urine Protein Urine Glucose (UA) Urine Ketones Urine Occult Blood Urine Nitrate Urine Bilirubin Urine Urobilinogen Ur Leukocyte Esterase Urine RBC Urine WBC Urine Bacteria Ur Culture Indicated? Micro UA Comment 05/03/18 05/03/18 05/03/18 16:05 21:13 21:13 WBC 9.8 RBC 3.92 L Hgb 14.2 Hct 40.1 L MCV 102.2 H MCH 36.1 H MCHC 35.3 RDW 13.3 Plt Count 64 L Neut % (Auto) Lymph % (Auto) [place] % (Auto) Eos % (Auto) Baso % (Auto) Neut # (Auto) Total Counted 100 Seg Neutrophils % 81.0 H Band Neutrophils % 1.0 L Lymphocytes % (Manual) 6.0 L Atypical Lymphs % 3.0 H Monocytes % (Manual) 9.0 Neutrophils # (Manual) 8036 H RBC Morphology Normal morphology PT INR APTT Sodium 134 L Potassium 3.5 Chloride 102 Carbon Dioxide 22 BUN 8 L Creatinine 0.70 Estimated GFR > 60.0 BUN/Creatinine Ratio 11.4 Glucose 118 H Calcium 7.9 L Total Bilirubin 1.5 H AST 116 H ALT 71 Alkaline Phosphatase 59 Total Protein 6.7 Albumin 3.6 Globulin 3.1 Albumin/Globulin Ratio 1.2 Triglycerides 1865 H Cholesterol 293 H LDL Cholesterol, Calc TNP HDL Cholesterol 29 L Lipase 530 H Urine Color Yellow Urine Appearance Clear Urine pH 6.5 Ur Specific [place] <=1.005 Urine Protein Negative Urine Glucose (UA) Negative Urine Ketones Negative Urine Occult Blood Negative Urine Nitrate Negative Urine Bilirubin Negative Urine Urobilinogen 0.2 Ur Leukocyte Esterase Negative Urine RBC None seen Urine WBC 0-1/hpf Urine Bacteria None seen Ur Culture Indicated? Cult not indicated Micro UA Comment Not Reportable Assessment & Plan (1) Hyponatremia: Problem details: Continue to monitor closely Currently receiving IV hydration Current visit: Yes Status: Acute (2) Acute pancreatitis: Problem details: NPO, IV hydration, pain medications and antinausea medications Will check lipids as well Qualifiers: Acute pancreatitis complication: unspecified Pancreatitis type: unspecified pancreatitis type Qualified Code(s): K85.90 - Acute pancreatitis without necrosis or infection, unspecified Current visit: Yes Status: Acute (3) Sigmoid thickening: Problem details: Start Levofloxacin and Flagyl Surgery consult before discharge to plan for colonoscopay Current visit: Yes Status: Acute (4) Hypertriglyceridemia: Problem details: Will start lopid once able to take oral Current visit: Yes Status: Acute (5) Alcohol withdrawal: Problem details: [facility] protocol [facility] symptom management Current visit: Yes Status: Acute Plan: Assessment/Plan Narrative: as above. Will follow labs daily Quality VTE Deep Vein Thrombosis/Pulmonary Embolism Present on Admission: No
--- NOTE | 2018-05-04 11:21 | P.PN_ITS ---
Subjective Date Patient Seen: 05/04/18 Time Patient Seen: 11:19 Interval history: Patient reports he feels much better today. He is thirsty and hungry. Still with some abdominal pain but overall improved He continues to have a tremor but no hallucinations or seizures. Exam Vital Signs (past 8 hours): - 05/04/18 04:00 05/04/18 07:30 05/04/18 07:45 Temperature 99.5 F 101.3 F H 101.3 F H Pulse Rate 112 H 120 H 129 H Respiratory Rate 18 20 20 Blood Pressure 143/94 H 148/91 H 144/69 H Pulse Oximetry 95 99 99 05/04/18 07:57 05/04/18 10:20 Temperature 100.9 F H Pulse Rate Respiratory Rate Blood Pressure Pulse Oximetry 99 Oxygen Delivery Method Room Air Oxygen Flow Rate 0 Narrative Exam Narrative: Face: Flushed Lungs: clear to ausculatation CV: RRR nl Sl S2 Abd: mildly distended, soft, diffusely tender, no rebound no rigidity, no palpable masses Ext: no edema Neuro: awake, alert, and appropirate Objective Labs Result Diagrams: 05/03/18 21:13 05/03/18 21:13 Labs: Laboratory Results - last 24 hr 05/03/18 05/03/18 05/03/18 13:55 13:55 13:55 WBC 12.3 H RBC 4.35 L Hgb 15.8 Hct 43.8 MCV 100.7 H MCH 36.4 H MCHC 36.1 H RDW 13.4 Plt Count 93 L Neut % (Auto) 81.7 H Lymph % (Auto) 5.9 L [place] % (Auto) 11.8 Eos % (Auto) 0.0 L Baso % (Auto) 0.6 Neut # (Auto) 03796 H Total Counted Seg Neutrophils % Band Neutrophils % Lymphocytes % (Manual) Atypical Lymphs % Monocytes % (Manual) Neutrophils # (Manual) RBC Morphology PT 12.5 INR 1.2 APTT 31 Sodium 135 L Potassium 3.8 Chloride 98 Carbon Dioxide 23 BUN 7 L Creatinine 0.70 Estimated GFR > 60.0 BUN/Creatinine Ratio 10.0 Glucose 110 H Calcium 9.0 Total Bilirubin 2.2 H AST 139 H ALT 80 H Alkaline Phosphatase 78 Total Protein 7.8 Albumin 4.4 Globulin 3.4 Albumin/Globulin Ratio 1.3 Triglycerides Cholesterol LDL Cholesterol, Calc HDL Cholesterol Lipase 1032 H Urine Color Urine Appearance Urine pH Ur Specific [place] Urine Protein Urine Glucose (UA) Urine Ketones Urine Occult Blood Urine Nitrate Urine Bilirubin Urine Urobilinogen Ur Leukocyte Esterase Urine RBC Urine WBC Urine Bacteria Ur Culture Indicated? Micro UA Comment 05/03/18 05/03/18 05/03/18 16:05 21:13 21:13 WBC 9.8 RBC 3.92 L Hgb 14.2 Hct 40.1 L MCV 102.2 H MCH 36.1 H MCHC 35.3 RDW 13.3 Plt Count 64 L Neut % (Auto) Lymph % (Auto) [place] % (Auto) Eos % (Auto) Baso % (Auto) Neut # (Auto) Total Counted 100 Seg Neutrophils % 81.0 H Band Neutrophils % 1.0 L Lymphocytes % (Manual) 6.0 L Atypical Lymphs % 3.0 H Monocytes % (Manual) 9.0 Neutrophils # (Manual) 8036 H RBC Morphology Normal morphology PT INR APTT Sodium 134 L Potassium 3.5 Chloride 102 Carbon Dioxide 22 BUN 8 L Creatinine 0.70 Estimated GFR > 60.0 BUN/Creatinine Ratio 11.4 Glucose 118 H Calcium 7.9 L Total Bilirubin 1.5 H AST 116 H ALT 71 Alkaline Phosphatase 59 Total Protein 6.7 Albumin 3.6 Globulin 3.1 Albumin/Globulin Ratio 1.2 Triglycerides 1865 H Cholesterol 293 H LDL Cholesterol, Calc TNP HDL Cholesterol 29 L Lipase 530 H Urine Color Yellow Urine Appearance Clear Urine pH 6.5 Ur Specific [place] <=1.005 Urine Protein Negative Urine Glucose (UA) Negative Urine Ketones Negative Urine Occult Blood Negative Urine Nitrate Negative Urine Bilirubin Negative Urine Urobilinogen 0.2 Ur Leukocyte Esterase Negative Urine RBC None seen Urine WBC 0-1/hpf Urine Bacteria None seen Ur Culture Indicated? Cult not indicated Micro UA Comment Not Reportable Assessment & Plan (1) Hyponatremia: Problem details: Continue to monitor closely Currently receiving IV hydration Current visit: Yes Status: Acute (2) Acute pancreatitis: Problem details: NPO, IV hydration, pain medications and antinausea medications Will check lipids as well Qualifiers: Acute pancreatitis complication: unspecified Pancreatitis type: unspecified pancreatitis type Qualified Code(s): K85.90 - Acute pancreatitis without necrosis or infection, unspecified Current visit: Yes Status: Acute (3) Sigmoid thickening: Problem details: Start Levofloxacin and Flagyl Surgery consult before discharge to plan for colonoscopay Current visit: Yes Status: Acute (4) Hypertriglyceridemia: Problem details: Will start lopid once able to take oral Current visit: Yes Status: Acute (5) Alcohol withdrawal: Problem details: [facility] protocol [facility] for symptom management Current visit: Yes Status: Acute Plan: Assessment/Plan Narrative: as above. Will follow labs daily Quality VTE Deep Vein Thrombosis/Pulmonary Embolism Present on Admission: No
[2018-05-04] MEDS: ACETAMINOPHEN 325 MG TABLET 650 MG PO (12:33)
[2018-05-04] MEDS: levoFLOXacin 500 MG/100 ML PIGGYBACK 100 MG IV (18:19)
[2018-05-05] MEDS: metroNIDAZOLE 500 MG/100 ML PIGGYBACK 100 MG IV (00:17)
[2018-05-05] MEDS: DEXTROSE 5%-0.9% NS 1,000 ML 175 ML IV (00:17)
[2018-05-05] MEDS: LORazepam 2 MG/ML SYRINGE IV ×2 (02:17→07:06)
[2018-05-05 04:00] VITALS: BP 129/86; PULSE 111; RESP 18; TEMP 37.5; O2SAT 95
[2018-05-05 05:00] LABS: Add Manual Diff / Slide Review NO; Basophils Percent Auto 0.3 % (0-2); Eosinophils Percent Auto 0.3 % (2-4); Hematocrit 36.3 % (41-53); Hemoglobin 12.7 g/dL (13.5-17.5); Lymphocytes Percent Auto 7.4 % (25-40); Mean Corpuscular HGB Conc 35.1 % (30-36); Mean Corpuscular Volume 102.6 fL (80-100); Monocytes Percent Auto 7.6 % (3-14); Neutrophils Absolute Auto 8100 /uL (3000-5900); Neutrophils Percent Auto 84.4 % (50-75); Platelet Count 65 X10^3/uL (150-400); Red Blood Cell Count 3.53 X10^6/uL (4.5-5.9); Red Cell Distribution Width 13.5 % (11.6-14.8); White Blood Cell Count 9.6 X10^3/uL (4.5-11.0)
[2018-05-05 05:10] LABS: Alanine Aminotransferase 51 IU/L (21-72); Albumin 3.3 g/dL (3.5-5.0); Albumin Globulin Ratio 1.2 (1.0-2.8); Alkaline Phosphatase 47 U/L (38-126); Aspartate Aminotransferase 74 IU/L (17-59); BUN Creatinine Ratio 5.7 (6-22); Bilirubin Total 1.4 mg/dL (0.2-1.3); Blood Urea Nitrogen 4 mg/dL (9-20); Calcium 7.4 mg/dL (8.4-10.2); Carbon Dioxide 24 mmol/L (22-32); Chloride 104 mmol/L (98-107); Estimated Glomerular Filt Rate > 60.0 mL/min (>60); Globulin 2.8 g/dL (1.7-4.1); Glucose 123 mg/dL (70-100); HEMOLYSIS < 15 (0-50); Potassium 2.9 mmol/L (3.4-5.1); Sodium 137 mmol/L (137-145); Total Protein 6.1 g/dL (6.3-8.2)
--- NOTE | 2018-05-05 05:48 | PC.NURSE ---
Addendum entered by Kari Giron R.N. 05/05/18 06:03: diarrhea is mixed with urine. Appears almost neon yellow in color, with some liquid brown stool. Original Note: Patient is very pleasant, AxOx4, VSS. Patient having frequent diarrhea (about 5x). His potassium this morning is low at 2.9 He is hungry/thirsty wanting to know when he can start to eat again. CIWA=1, ativan given once (says his stomach/body internally feels like its cramping/quivering at times) No real complaints, patient just says his stomach bothers him and hurts a little bit but is much better than previously. And complaints abt the frequent diarrhea. No tremors, no nausea, no visual/tactile hallucinations, no perspiration noted.
[2018-05-05 07:00] VITALS: O2SAT 93
[2018-05-05 08:00] VITALS: BP 130/86; PULSE 113; RESP 15; TEMP 36.9; O2SAT 93
[2018-05-05 08:50] LABS: Lipase 123 U/L (23-300)
--- NOTE | 2018-05-05 10:06 | P.DS_ITS ---
History of Present Illness Date Patient Seen: 05/05/18 Chief complaint: BLOATED, ABD PAIN Narrative: Patient presented with abrupt onset diffuse abdominal pain. The pain was severe. He had no diarrhea or vomitting but did report dry heaves. Patient was evaluated in the Emergency Department and CT Scan and lipase confirmed acute pancreatitis. Patient also had inflammation of the sigmoid colon concerning for either colitis/diverticulitis/ or malignancy. He was admitted to the hospital for further evaluation. Patient drinks daily, he had evidence of alcohol withdrawal in the emergency room. Patient was treated with ativan for symptoms and admitted for further evaluation. Discharge Providers Date of admission: 05/03/18 17:13 Primary care physician: Morena Guerra MD Consults: 05/03/18 17:40 Consult to Energy Trading Analyst Routine Comment: Discharge provider: Laine Perla MD Summary Discharge Diagnosis: Acute Pancreatitis Alcohol Withdrawal Syndrome Hypertriglyceridemia Acute Colitis Hospital Course: Patient was admitted to the hospital and place on IV antibiotics, fluids, antiemetics and pain medications. He was given ativan for withdrawal and had no significant symptoms of DT's. His lipase slowly improved. He developed some diarrhea on the day of discharge. The patient reported his abdominal symptoms had improved significantly and was anxious to discharge home. Patient will be seen by Social work to discuss abstinence and treatment for Etoh abuse. He will be discharged on antibiotics. Patient will need to follow up with general surgery as an outpatient for colonscopy once he has recovered from his pancreatitis. Status at Discharge Functional status at discharge: independent ambulation Overall status at discharge: patient is back to baseline Time Spent with Patient Less than 30 minutes Exam Vital Signs (past 8 hours): - 05/05/18 04:00 05/05/18 07:00 05/05/18 08:00 Temperature 99.5 F 98.5 F Pulse Rate 111 H 113 H Respiratory Rate 18 15 Blood Pressure 129/86 H 130/86 H Pulse Oximetry 95 93 93 Oxygen Delivery Method Room Air Oxygen Flow Rate 0 Narrative Exam Narrative: Lungs: Clear to auscultation CV: RRR nl Sl S2 Abd: Soft/ mildly tender in the midepigastrium Ext: no edema Objective Labs Result Diagrams: 05/05/18 04:43 05/05/18 04:43 Labs: Laboratory Results - last 24 hr 05/05/18 05/05/18 05/05/18 04:43 04:43 04:43 WBC 9.6 RBC 3.53 L Hgb 12.7 L Hct 36.3 L MCV 102.6 H MCH 36.0 H MCHC 35.1 RDW 13.5 Plt Count 65 L Neut % (Auto) 84.4 H Lymph % (Auto) 7.4 L Dawson % (Auto) 7.6 Eos % (Auto) 0.3 L Baso % (Auto) 0.3 Neut # (Auto) 8100 H Sodium 137 Potassium 2.9 L Chloride 104 Carbon Dioxide 24 BUN 4 L Creatinine 0.70 Estimated GFR > 60.0 BUN/Creatinine Ratio 5.7 L Glucose 123 H Calcium 7.4 L Total Bilirubin 1.4 H AST 74 H ALT 51 Alkaline Phosphatase 47 Total Protein 6.1 L Albumin 3.3 L Globulin 2.8 Albumin/Globulin Ratio 1.2 Lipase 123 D Discharge Plan Discharge Plan Discharge Problem: Acute pancreatitis, Sigmoid thickening, Unintentional weight loss Patient Disposition: Home Discharge Med Rec/Prescriptions Prescriptions: New levofloxacin 500 mg tablet 500 mg PO DAILY Qty: 10 RF: 0 metronidazole 500 mg tablet 500 mg PO TID Qty: 30 RF: 0 gemfibrozil 600 mg Tablet 600 mg PO BIDAC Qty: 60 RF: 0 Continue alprazolam [Xanax] 0.5 mg Tablet 0.5 mg PO BID PRN (Reason: Anxiety) RF: 0 lisinopril 5 mg Tablet 5 mg PO DAILY RF: 0 albuterol sulfate [ProAir HFA] 90 mcg/actuation Hfa Aerosol Inhaler 2 puff INHALATION QID PRN (Reason: SOB) RF: 0 Follow up/Referrals: Morena Guerra MD [Primary Care Provider] - 1 Week (follow up with Dr. Stewart for possible colonoscopy given findings of probable colitis on CT of the abdomen) Provider Discharge Instructions Diet: Diet as Tolerated Diet comment: low fat diet progress as tolerated Activity: as tolerated Discharge Data Primary Care Provider: Morena Guerra Attending Provider: Laine Perla Admit Date/Time: 05/03/18 17:13 Quality VTE Deep Vein Thrombosis/Pulmonary Embolism Present on Admission: No
[2018-05-05] MEDS: POTASSIUM CHLORIDE 20 MEQ TAB 40 MEQ PO (10:43)
--- NOTE | 2018-05-05 10:58 | PC.NURSE ---
Pt ready for discharge home with spouse. Spouse was present for discussion with Dr. Perla about stopping alcohol intake completely and that he cannot drink alcohol when taking Flagyl. Discussed diet, activity. Pt's spouse states she plans to remove all alcohol from the house. Discussed follow up appointments and reviewed stroke education. Pt and Spouse deny further questions and were taken out via w/c by INSTALLATION AND SERVICE TECHNICIAN to POV with all belongings.
--- NOTE | 2018-05-05 13:02 | CM.SWNOTE ---
ADULT PSYCHIATRIST Consult: Consult request today for this 42 yo gentleman threatening to leave AMA. CARLENEWA this morning was 1. Pt had left w/spouse by the time this ADULT PSYCHIATRIST arrived for consult; AIDAN Boyd explained that Dr Perla had discussed abstaining from alcohol w/pt, educated pt about effects of taking flagyl and alcohol together; spouse in agreement and was planning to remove all alcohol from the house. JW
== END 2018-05-05 11:06 | disposition home or self-care (01) | DRG 439 ==
LOC: ED 16:13 → AC 17:15
PROVIDERS: Emergency Medicine; Admitting Provider Internal Medicine; Emergency Provider Internal Medicine; PCP Family Medicine; Visit Provider Internal Medicine
DX: K85.90 Acute pancreatitis without necrosis or infection, unspecified (principal); F10.239 Alcohol dependence with withdrawal, unspecified; K52.9 Noninfective gastroenteritis and colitis, unspecified; E78.1 Pure hyperglyceridemia; R63.4 Abnormal weight loss; Z68.28 Body mass index [BMI] 28.0-28.9, adult; I10 Essential (primary) hypertension
CPT/HCPCS: 36415; 36591; 74177; 80053; 80061; 81001; 83690; 85025; 85610; 85730; 93005; 93010; 96361; 96374; 96375; 96376; 99283; 99285; J1170; J1650; J1885; J1956; J2060; J2405; Q9967

== ENCOUNTER 2018-05-25 06:50 | Day surgery (SDC) | payer OTHER, SELFPAY ==
[2018-05-03 17:27] VITALS: BMI 28.0
[2018-05-25] VITALS (7 sets, daily range): BP systolic 106–139; BP diastolic 68–94; PULSE 68–95; RESP 12–16; TEMP 36–36.7; O2SAT 94–100; BMI 26.8
--- NOTE | 2018-05-25 | PATH_ITS ---
[facility] Accession Number: [id number] . 01 Material submitted: . PART A: RANDOM SIGMOID COLON BIOPSIES PART B: POLYP @20CM PART C: POLYP @ 15CM . 02 Diagnosis: A. Random Sigmoid Colon, Biopsies: Colonic mucosa with no diagnostic abnormality. Negative for active, chronic and microscopic colitis. Negative for dysplasia and malignancy. . B. Colon, Polyp at 20 cm, Biopsy: Inflammatory pseudopolyp. Negative for dysplasia and malignancy. . C. Colon, Polyp at 15 cm, Biopsy: Tubular adenoma. MRV/05/26/2018 . 02 Electronically signed: . Ghazal Brownlee MD, Pathologist NPI- [id number] . 01 Gross description: . Received three formalin-filled containers, each labeled with the patient's name: . A. In a container labeled random sigmoid colon, are multiple 0.2-0.5 cm portions of tissue, entirely submitted in cassette A. B. In a container labeled polyp at 20 cm, are three 0.2-0.3 cm portions of tissue, entirely submitted in cassette B. C. In a container labeled polyp at 15 cm, are three 0.2-0.3 cm portions of tissue, entirely submitted in cassette C. ([id number]) /FRR . 02 Pathologist provided ICD-10: D12.6 . 02 CPT . 496876, 760066, [id number] Performed at: 01 [facility] [address] [id number] MD Ye Hendricks MD Phone: [phone] Performed at: 02 [facility] [id number] [place] [id number] MD Carter Ramos MD Phone: [phone]
[2018-05-25] MEDS: SODIUM CHLORIDE 0.9% 1,000 ML 100 ML IV (07:40)
--- NOTE | 2018-05-25 09:02 | PM.HP.1 ---
History of Present Illness Date Patient Seen: 05/25/18 Time Patient Seen: 09:02 Chief complaint: colonoscopy [id number] Narrative: Pleasant 43-year-old gentleman admitted last month to our hospital for acute pancreatitis. CT scan at that time he was admitted revealed some thickening of the sigmoid colon that was consistent with either colitis, diverticulitis, or neoplastic process. He presents today for colonoscopy for better illumination of this problem. Patient History Medical History Anxiety (Acute) HTN (hypertension) (Chronic) Surgical History History of tonsillectomy (Resolved) Family & Social History Family History: Reviewed 05/25/18 by Katrin Stewart MD Social History: household members spouse Tobacco & Substance use: Tobacco type smokeless tobacco Smoking Status Never smoker alcohol intake current alcohol intake frequency 3 or more drinks per day Substance Use Type marijuana Meds Home Medications Medication Instructions Recorded Confirmed Type albuterol sulfate [ProAir HFA] 2 puff INHALATION QID PRN 05/03/18 05/03/18 History alprazolam [Xanax] 0.5 mg PO BID PRN 05/03/18 05/03/18 History lisinopril 5 mg PO DAILY 05/03/18 05/03/18 History gemfibrozil 600 mg PO BIDAC #60 tab 05/05/18 Rx levofloxacin 500 mg PO DAILY #10 tab 05/05/18 Rx metronidazole 500 mg PO TID #30 tab 05/05/18 Rx Allergies Allergy/AdvReac Type Severity Reaction Status Date / Time No Known Drug Allergies Allergy Verified 05/03/18 13:24 Review of Systems Review of Systems All systems reviewed & are unremarkable except as noted in HPI and below Exam Vital Signs (past 8 hours): - 05/25/18 07:46 Temperature 97.0 F L Pulse Rate 69 Respiratory Rate 16 Blood Pressure 132/84 Pulse Oximetry 98 Oxygen Delivery Method Room Air Narrative Exam Narrative: Very pleasant gentleman resting comfortably and in no obvious distress. HEENT: Normocephalic and atraumatic, pupils equal round reactive to light accommodation with anicteric sclera Lungs: Clear to auscultation bilaterally Heart: Regular rate and rhythm without murmur rub or gallop Abdomen: Soft, nontender, active bowel sounds, Extremities: Warm and well perfused Assessment & Plan Plan: Assessment/Plan Narrative: Very pleasant and otherwise reasonably healthy gentleman who was recently admitted with pancreatitis and noted to have an abnormal CT involving the sigmoid colon. He has never had a colonoscopy and has no family history of colon cancer. We discussed the risks and benefits of the procedure the patient expressed a desire to complete it today
--- NOTE | 2018-05-25 09:46 | PM.OP.1 ---
Operative Date/Time/Diagnoses Date of procedure: 05/25/18 Time of procedure: 09:46 Pre-op diagnosis: Colitis and pancreatitis Post-op diagnosis: same Procedure & Clinicians Procedure: Colonoscopy to the cecum with polypectomy x2 and multiple biopsies Same procedure as scheduled: Yes Indications: Pleasant gentleman recently admitted for acute pancreatitis. He has chronic alcohol use and abuse issues. At the time of recent admission, he had a CT scan that revealed inflammation in the region of the sigmoid colon. He presents for colonoscopy for this reason. Due to recent fairly severe pancreatitis as well as substance issues, general anesthesia is deemed necessary for the safety of the patient Surgeon: Katrin Stewart Anesthesia Type: General (Goetter) Operative Notes Findings: 1. Excellent prep 2. Significant sigmoid diverticulosis with evidence of recent diverticulitis. 3. Polyp at 20 cm-5 mm, semi pedunculated and most consistent with an inflammatory polyp. Removed with cold forceps and submitted to pathology 4. Polyp at 15 cm-2-3 mm and sessile. Removed cold forceps and submitted to pathology 5. Grade 2 internal hemorrhoids Closure Type: not applicable Specimen(s): other (1. Random biopsies of the sigmoid region, 2. Polyp at 20 cm, 3. Polyp at 15 cm) Estimated Blood Loss (mL): 1 Procedure in detail: After obtaining informed consent, the patient was brought to the GI suite and placed in the left lateral decubitus position on the examination table. After placement of appropriate monitors, the patient was given incremental doses of Versed and Fentanyl until an appropriate level of sedation was achieved. A time out was held per SCOAP protocol. A digital rectal examination was performed and did not reveal any masses or obstructing lesions. The colonoscope was gently passed into the patient's anus and the entire colon navigated to the level of the cecum with minimal difficulty. Once in the cecum, the scope was withdrawn being sure to go before and beyond all mucosal folds and prominences and get an excellent examination. The findings are noted above. At the level of the rectal vault, the scope was retroflexed and the internal anal canal was examined. The scope was straightened and air aspirated from the colon. The instrument was removed from the patient's body and the procedure was concluded. The patient was allowed to awaken from sedation without difficulty and taken to the post-anesthesia care unit in good condition. Complications: none Condition: stable Disposition: PACU Plan for aftercare: 1. Discharge to home 2. Plan for next colonoscopy in 5 years or as clinically indicated 3. We will contact you with pathology results and any other recommendations
--- NOTE | 2018-05-25 10:35 | SUR.PHASEII ---
Pt ambulated to bathroom x2, gait steady. + flatus. Reported pain 8/10 but improving. Abd mildly firm, distended.
--- NOTE | 2018-05-25 15:51 | SUR.PHASEII ---
1130 Pt reported abd pain down to 2-3/10, abd soft. IV d/c'd. Patient discharged.
== END 2018-05-25 11:17 | disposition home or self-care (01) ==
PROVIDERS: PCP Family Medicine; Visit Provider Surgery
PROC: 0DJD8ZZ Inspection of Lower Intestinal Tract, Via Natural or Artificial Opening Endoscopic (ICD-10-PCS; CPT 45378; principal; 2018-05-25 08:45)
DX: D12.6 Benign neoplasm of colon, unspecified (principal); K63.5 Polyp of colon; K52.9 Noninfective gastroenteritis and colitis, unspecified; K57.30 Diverticulosis of large intestine without perforation or abscess without bleeding; K85.90 Acute pancreatitis without necrosis or infection, unspecified; K64.1 Second degree hemorrhoids; I10 Essential (primary) hypertension; Z87.891 Personal history of nicotine dependence
CPT/HCPCS: 45380; J1100; J2250; J2405; J2704; J3010

== ENCOUNTER → 2023-12-26 14:16 | Outpatient (CLI) | payer OTHER, SELFPAY ==
[2018-05-03 17:27] VITALS: BMI 28.0
--- NOTE | 2023-12-26 14:26 | DI.RAD.S_ITS ---
PROCEDURE: XR SHOULDER LT MIN 2V INDICATIONS: Left shoulder pain TECHNIQUE: 3 views of the shoulder were acquired. COMPARISON: [facility], CR, XR CLAVICLE LT, 12/26/2023, 14:25. FINDINGS: Bones: No fractures or dislocations. No suspicious bony lesions. Visualized ribs appear intact. Soft tissues: No suspicious soft tissue calcifications. IMPRESSION: No acute bony abnormality. Dictated by: Yomaira Pearson M.D. on 12/26/2023 at 16:39 Approved by: Yomaira Pearson M.D. on 12/26/2023 at 16:39
--- NOTE | 2023-12-26 14:26 | DI.RAD.S_ITS ---
PROCEDURE: XR CLAVICLE LT INDICATIONS: Left shoulder pain TECHNIQUE: 2 views of the clavicle were acquired. COMPARISON: [facility], CR, XR SHOULDER LT MIN 2V, 12/26/2023, 14:25. FINDINGS: Bones: No fractures or dislocations. No suspicious bony lesions. Soft tissues: No suspicious soft tissue calcifications. IMPRESSION: No acute bony abnormality. Dictated by: Yomaira Pearson M.D. on 12/26/2023 at 16:37 Approved by: Yomaira Pearson M.D. on 12/26/2023 at 16:38
== END ==
LOC: RAD 14:19
PROVIDERS: PCP Family Medicine; Referring Provider Nurse Practitioner Family; Visit Provider Nurse Practitioner Family
DX: M25.512 Pain in left shoulder (principal)
CPT/HCPCS: 73000; 73030